=== PATIENT | female | born 1975 | race Caucasian/White ===

== ENCOUNTER 2025-04-22 12:24 | Observation (INO) | payer OTHER, SELFPAY ==
[2025-04-22] VITALS (15 sets, daily range): BP systolic 114–160; BP diastolic 52–82; PULSE 92–110; RESP 15–25; TEMP 36.3–36.9; O2SAT 93–97; BMI 20.9
--- NOTE | 2025-04-22 12:29 | PC.NURSE ---
Blood glucose checked at triage, HIGH.
--- NOTE | 2025-04-22 12:52 | PC.NURSE ---
Pt states she gave herself 10 units of Humalog insulin at noon.
[2025-04-22 13:30] LABS: Hematocrit 41.1 % (37.0-47.0); Hemoglobin 13.7 g/dL (12.0-15.0); Immature Granulocyte Percent A 0.4 % (0-0.5); Lymphocytes Absolute Auto 0.93 K/mm3 (0.9-3.2); Mean Corpuscular HGB Conc 33.3 g/dl (32-36); Mean Corpuscular Hemoglobin 32.9 pg (26-34); Mean Corpuscular Volume 98.8 fl (80-100); Nucleated Red Blood Cells Absolute Auto 0.000 K/mm3 (0.0-0.012); Nucleated Red Blood Cells Perc 0.0 % (0.0-0.2); Platelet Count Result 286 k/mm3 (150-375); Red Blood Count 4.16 M/mm3 (4.2-5.4); White Blood Count 8.9 K/mm3 (4.5-10.0)
[2025-04-22] MEDS: SODIUM CHLORIDE 0.9% IV 1,000 ML 999 ML IV CONT ×2 (13:30)
[2025-04-22 13:40] LABS: Alveolar/Arterial O2 Gradient 38.9 mmHg; Carboxyhemoglobin 2.3 % THb (0-2.0); Fractional Inspired Oxygen 21 %; HCO3 ABG 11.1 mEq/l (22.0-26.0); Methemoglobin ABG 0.2 %THb (0-1.5); Oxygen Content ABG 17.3 %vol (16.0-22.0); Oxygen Saturation ABG 94.7 % (95.0-100.0); PCO2 ABG 24.8 mmHg (35.0-45.0); PO2 ABG 81.1 mmHg (80.0-100.0); PO2 FiO2 Ratio Arterial Blood 3.86 %; Reduced Hemoglobin 5.3 %THb (0-5.0)
[2025-04-22 13:45] LABS: Modified Allen's Test Pass; Site Drawn RIGHT RADIAL
[2025-04-22 13:55] LABS: Alanine Aminotransferase 25 U/L (6-35); Albumin Level 4.3 g/dL (3.5-5.1); Alkaline Phosphatase 101 U/L (38-126); Anion Gap 24 mmol/L (4-12); Aspartate Amino Transferase 27 U/L (14-36); Bilirubin,Total 0.9 mg/dL (0.2-1.3); Blood Urea Nitrogen 23 mg/dL (7-17); Calcium 8.6 mg/dL (8.4-10.2); Carbon Dioxide 10 mmol/L (22-30); Chloride 97 mmol/L (98-107); Estimated Glomerular Filt Rate > 60; Glucose 504 mg/dL (65-110); Magnesium 1.9 mg/dL (1.6-2.3); Potassium 4.3 mmol/L (3.4-5.0); Sodium 131 mmol/L (137-145); Total Protein 7.2 g/dL (6.3-8.2)
--- NOTE | 2025-04-22 14:58 | ED_ITS ---
HPI - General Adult General Chief complaint: Recheck/Abnormal Lab/Rx Stated complaint: insulin pump failed, hyperglycemic? Time Seen by Provider: 04/22/25 13:06 History of Present Illness HPI narrative: Patient is a 49-year-old female who presents ER with concerns for DKA. She has an insulin pump that has been having trouble with its tubing. She is change the equipment is still not getting her insulin dose properly. Her blood sugars been running in the 500s so she gave herself 10 units of insulin and came to the ER. She is having some nausea. No fevers or chills or sweats. No urinary frequency urgency. Denies polydipsia. Recently hospitalized for DKA in [place]. Related Data Home Medications ?Medication ?Instructions ?Recorded ?Confirmed ?Last Taken ?Type cyclobenzaprine 10 mg tablet 10 mg PO HS PRN muscle sp asm 04/22/25 04/22/25 04/21/25 History insulin lispro 100 unit/mL 1 sliding scale dose contin uous 04/22/25 04/22/25 04/21/25 History subcutaneous solution subcutaneous infusion DAILY Allergies Allergy/AdvReac Type Severity Reaction Status Date / Time adhesive Allergy Rash Verified 04/22/25 16:44 bupropion (From Wellbutrin) Allergy Unknown Verified 04/22/25 16:44 [id number] Reductase Allergy lightheaded Verified 04/22/25 16:44 Inhibitor varenicline (From Chantix) Allergy Unknown Verified 04/22/25 16:44 Review of Systems 2 Review of Systems: All systems reviewed & are unremarkable except as noted in HPI and below Constitutional: Constitutional: Reports no additional constitutional complaints ENT: Reports system reviewed and no additional complaints, except as documented Cardiovascular: Cardiovascular: Reports no additional cardiovascular complaints Respiratory: Respiratory: Reports no additional respiratory complaints Gastrointestinal: Gastrointestinal: Reports no additional gastrointestinal complaints Genitourinary: Genitourinary: Reports no additional female genitourinary complaints [facility] Past Medical History Medical History (Updated 04/22/25 @ 20:05 by John Olson MD) Diabetes Surgical History Surgical History (Updated 04/22/25 @ 20:02 by John Olson MD) History of hysterectomy History of cholecystectomy Family History Family History (Updated 04/22/25 @ 17:11 by Adri Zhou RN) Mother Breast cancer Father Heart attack Social History Social History Smoking packs per day: 1 Smoking cigarettes per day: 20.0 Years smoked: 37 Smoking pack-years: 37.00 Smoking status: Current every day smoker Tobacco type: cigarettes Alcohol intake: never Substance use: never Substance use type: does not use Lack of Transportation: No Lack of Food: Never True Current Housing: I Have Housing Concerned About Future Housing: No Difficulty Paying Gas/Electric Bills: No Difficulty Paying for Meds: No Currently Unemployed: No Education: Associate Degree Difficulty w/ Childcare or Family Care: No Spiritual care concerns: No Exam 2 Narrative: GENERAL: Well-appearing, well-nourished, and in no acute distress. HEAD: Normocephalic, atraumatic. ENT: Mucous membranes moist. CHEST: Clear to auscultation. No respiratory distress. HEART: Tachycardic and regular. Normal peripheral pulses. ABDOMEN: Soft, nontender, nondistended. EXTREMITIES: Normal range of motion. No edema. SKIN: Warm, dry, no rash. NEURO: Alert and oriented x3. PSYCH: Normal mood and affect. Course Course Emergency Course: Patient aggressively hydrated with IV fluids. Blood sugar down into the 300s. Started on insulin drip. Keep NPO. Placed in ICU. Regulatory Submissions Associate consulted. Accepted by the hospitalist service. Vital Signs Vital signs: Vital Signs Temperature 97.3 F L 04/22/25 12:26 Pulse Rate 104 H 04/22/25 12:26 Respiratory Rate 20 04/22/25 12:26 Blood Pressure 114/52 L 04/22/25 12:26 Pulse Oximetry 97 04/22/25 12:26 Oxygen Delivery Room Air 04/22/25 12:26 Temperature 98.0 F 04/22/25 16:43 Pulse Rate 96 04/22/25 19:29 Respiratory Rate 20 04/22/25 19:29 Blood Pressure 150/74 H 04/22/25 19:00 Pulse Oximetry 94 04/22/25 19:29 Oxygen Delivery Room Air 04/22/25 19:29 [facility] Differential Diagnosis Differential Diagnosis: DKA, PRANAY, electrolyte report derangement, pneumonia Lab Data [facility] Lab Attestation statement: I personally reviewed the patient's lab results. 04/22/25 13:25 04/22/25 17:42 Labs: Lab Results 04/22/25 04/22/25 04/22/25 Range/Units 12:29 13:12 13:25 WBC 8.9 (4.5-10.0) K/mm3 RBC 4.16 L (4.2-5.4) M/mm3 Hgb 13.7 (12.0-15.0) g/dL Hct 41.1 (37.0-47.0) % MCV 98.8 (80-100) fl MCH 32.9 (26-34) pg MCHC 33.3 (32-36) g/dl RDW 12.7 (11.5-14.5) % Plt Count 286 (150-375) k/mm3 MPV 9.3 (7.4-10.4) fl Immature Gran % (Auto) 0.4 (0-0.5) % Neut % (Auto) 84.7 H (45.5-73.1) % Lymph % (Auto) 10.4 L (18.3-44.2) % Cannon % (Auto) 3.9 (2.6-8.5) % Eos % (Auto) 0.2 (0-4.4) % Baso % (Auto) 0.4 (0.2-1.2) % Lymph # (Auto) 0.93 (0.9-3.2) K/mm3 Cannon # (Auto) 0.4 (0.1-0.6) K/mm3 Eos # (Auto) 0.0 (0-0.3) K/mm3 Baso # (Auto) 0.0 (0.0-0.1) K/mm3 Abs Immat Gran (auto) 0.04 H (0.00-0.031) K/mm3 Absolute Neuts (auto) 7.6 H (1.3-6.7) K/mm3 Absolute Nucleated RBC 0.000 (0.0-0.012) K/mm3 Nucleated RBC % 0.0 (0.0-0.2) % Methemoglobin (0-1.5) %THb Sodium 131 L (137-145) mmol/L Potassium 4.3 (3.4-5.0) mmol/L Chloride 97 L (98-107) mmol/L Carbon Dioxide 10 L (22-30) mmol/L Anion Gap 24 H (4-12) mmol/L BUN 23 H (7-17) mg/dL Creatinine 0.89 (0.7-1.0) mg/dL Estim Creat Clear Calc Not Reportable Estimated GFR > 60 (59 - ) Glucose 504 H* (65-110) mg/dL POC Capillary Glucose > 500 H* > 500 H* (65-105) mg/dl Hemoglobin A1c 9.0 H (<5.7) % Calcium 8.6 (8.4-10.2) mg/dL Phosphorus 4.1 (2.5-4.5) mg/dL Magnesium 1.9 (1.6-2.3) mg/dL Total Bilirubin 0.9 (0.2-1.3) mg/dL AST 27 (14-36) U/L ALT 25 (6-35) U/L Alkaline Phosphatase 101 (38-126) U/L Total Protein 7.2 (6.3-8.2) g/dL Albumin 4.3 (3.5-5.1) g/dL Urine Color (Yellow) Urine Appearance (Clear) Urine pH (5.0-9.0) Ur Specific [place] (1.001-1.035) Urine Protein (Negative) mg/dL Urine Glucose (UA) (Negative) mg/dL Urine Ketones (Negative) mg/dL Ur Blood (Man) (Negative) Urine Nitrate (Negative) Urine Bilirubin (Negative) Urine Urobilinogen (<2.0) mg/dL Leukocyte Esterase Rfl (Negative) CHRISTY/UL Urine RBC (0-2) /hpf Urine WBC (0-3) /hpf Ur Squamous Epith Cells (Few) /hpf Urine Bacteria /hpf Urine Casts POC Urine HCG, Qual (Negative) 04/22/25 04/22/25 04/22/25 Range/Units 13:36 14:25 15:02 WBC (4.5-10.0) K/mm3 RBC (4.2-5.4) M/mm3 Hgb (12.0-15.0) g/dL Hct (37.0-47.0) % MCV (80-100) fl MCH (26-34) pg MCHC (32-36) g/dl RDW (11.5-14.5) % Plt Count (150-375) k/mm3 MPV (7.4-10.4) fl Immature Gran % (Auto) (0-0.5) % Neut % (Auto) (45.5-73.1) % Lymph % (Auto) (18.3-44.2) % Cannon % (Auto) (2.6-8.5) % Eos % (Auto) (0-4.4) % Baso % (Auto) (0.2-1.2) % Lymph # (Auto) (0.9-3.2) K/mm3 Cannon # (Auto) (0.1-0.6) K/mm3 Eos # (Auto) (0-0.3) K/mm3 Baso # (Auto) (0.0-0.1) K/mm3 Abs Immat Gran (auto) (0.00-0.031) K/mm3 Absolute Neuts (auto) (1.3-6.7) K/mm3 Absolute Nucleated RBC (0.0-0.012) K/mm3 Nucleated RBC % (0.0-0.2) % Methemoglobin 0.2 (0-1.5) %THb Sodium (137-145) mmol/L Potassium (3.4-5.0) mmol/L Chloride (98-107) mmol/L Carbon Dioxide (22-30) mmol/L Anion Gap (4-12) mmol/L BUN (7-17) mg/dL Creatinine (0.7-1.0) mg/dL Estim Creat Clear Calc Estimated GFR (59 - ) Glucose (65-110) mg/dL POC Capillary Glucose 345 H (65-105) mg/dl Hemoglobin A1c (<5.7) % Calcium (8.4-10.2) mg/dL Phosphorus (2.5-4.5) mg/dL Magnesium (1.6-2.3) mg/dL Total Bilirubin (0.2-1.3) mg/dL AST (14-36) U/L ALT (6-35) U/L Alkaline Phosphatase (38-126) U/L Total Protein (6.3-8.2) g/dL Albumin (3.5-5.1) g/dL Urine Color Yellow (Yellow) Urine Appearance Cloudy H (Clear) Urine pH 5.0 (5.0-9.0) Ur Specific [place] 1.023 (1.001-1.035) Urine Protein Trace (Negative) mg/dL Urine Glucose (UA) 3+ H (Negative) mg/dL Urine Ketones 4+ H (Negative) mg/dL Ur Blood (Man) Negative (Negative) Urine Nitrate Negative (Negative) Urine Bilirubin Negative (Negative) Urine Urobilinogen 0.2 (<2.0) mg/dL Leukocyte Esterase Rfl Negative (Negative) CHRISTY/UL Urine RBC 0-2 (0-2) /hpf Urine WBC 0-5 (0-3) /hpf Ur Squamous Epith Cells None seen (Few) /hpf Urine Bacteria None seen /hpf Urine Casts 3-5 POC Urine HCG, Qual (Negative) 04/22/25 Range/Units 15:06 WBC (4.5-10.0) K/mm3 RBC (4.2-5.4) M/mm3 Hgb (12.0-15.0) g/dL Hct (37.0-47.0) % MCV (80-100) fl MCH (26-34) pg MCHC (32-36) g/dl RDW (11.5-14.5) % Plt Count (150-375) k/mm3 MPV (7.4-10.4) fl Immature Gran % (Auto) (0-0.5) % Neut % (Auto) (45.5-73.1) % Lymph % (Auto) (18.3-44.2) % Cannon % (Auto) (2.6-8.5) % Eos % (Auto) (0-4.4) % Baso % (Auto) (0.2-1.2) % Lymph # (Auto) (0.9-3.2) K/mm3 Cannon # (Auto) (0.1-0.6) K/mm3 Eos # (Auto) (0-0.3) K/mm3 Baso # (Auto) (0.0-0.1) K/mm3 Abs Immat Gran (auto) (0.00-0.031) K/mm3 Absolute Neuts (auto) (1.3-6.7) K/mm3 Absolute Nucleated RBC (0.0-0.012) K/mm3 Nucleated RBC % (0.0-0.2) % Methemoglobin (0-1.5) %THb Sodium (137-145) mmol/L Potassium (3.4-5.0) mmol/L Chloride (98-107) mmol/L Carbon Dioxide (22-30) mmol/L Anion Gap (4-12) mmol/L BUN (7-17) mg/dL Creatinine (0.7-1.0) mg/dL Estim Creat Clear Calc Estimated GFR (59 - ) Glucose (65-110) mg/dL POC Capillary Glucose (65-105) mg/dl Hemoglobin A1c (<5.7) % Calcium (8.4-10.2) mg/dL Phosphorus (2.5-4.5) mg/dL Magnesium (1.6-2.3) mg/dL Total Bilirubin (0.2-1.3) mg/dL AST (14-36) U/L ALT (6-35) U/L Alkaline Phosphatase (38-126) U/L Total Protein (6.3-8.2) g/dL Albumin (3.5-5.1) g/dL Urine Color (Yellow) Urine Appearance (Clear) Urine pH (5.0-9.0) Ur Specific [place] (1.001-1.035) Urine Protein (Negative) mg/dL Urine Glucose (UA) (Negative) mg/dL Urine Ketones (Negative) mg/dL Ur Blood (Man) (Negative) Urine Nitrate (Negative) Urine Bilirubin (Negative) Urine Urobilinogen (<2.0) mg/dL Leukocyte Esterase Rfl (Negative) CHRISTY/UL Urine RBC (0-2) /hpf Urine WBC (0-3) /hpf Ur Squamous Epith Cells (Few) /hpf Urine Bacteria /hpf Urine Casts POC Urine HCG, Qual Negative (Negative) ABG Data ABG results: 04/22/25 13:36 Puncture Site Right radial ABG pH 7.269 L* ABG pCO2 24.8 L ABG pO2 81.1 ABG PO2/FiO2 Ratio 3.86 ABG HCO3 11.1 L ABG O2 Saturation 94.7 L ABG O2 Content 17.3 ABG Base Excess -14.0 A-a Gradient 38.9 Oxyhemoglobin 92.2 Carboxyhemoglobin 2.3 H Reduced Hemoglobin 5.3 H Total Hemoglobin 13.3 O2 Delivery Device Room air O2 Liters/Min Not Reportable FiO2 21 Critical Care Time Critical Care Time Critical Care Time: Yes Time Type: Intermittent Initial evaluation, discuss w/ involved parties, attempting to gather old records: 10 minutes Documenting medical record: 5 minutes Review of results (EKG's, labs, imaging): 5 minutes Serial repeat bedside evaluation: 10 minutes Discussing case with multiple memebers of the care team and consultants: 5 minutes Total Critical Care Time: 35 Discharge Plan Discharge Clinical Impression: DKA, type 1 Qualifiers: Diabetes mellitus complication detail: without coma Qualified Code(s): E10.10 - Type 1 diabetes mellitus with ketoacidosis without coma Patient Disposition: Still a Patient Condition: Stable
[2025-04-22 15:08] LABS: BEDSIDEPREGUCG Negative (Negative)
[2025-04-22 15:16] LABS: Add Urine Microscopic? YES; Appearance Urine Cloudy (Clear); Glucose Urine UA 3+ mg/dL (Negative); Leukocyte Esterase Ur Negative LEU/UL (Negative); Nitrate Urine Negative (Negative); Specific Grav Ur 1.023 (1.001-1.035)
[2025-04-22] MEDS: INSULIN HUMAN REGULAR (*BKC) 100 UNITS in SODIUM CHLORIDE 0.9% IV 99 ML 6 UNITS IV CONT (15:34)
[2025-04-22] MEDS: DEXTROSE 5%/0.45% SOD CHL 1,000 ML 150 ML IV CONT (16:26)
[2025-04-22] MEDS: KCL 20 MEQ/D5/0.45% SOD CHL 1,000 ML 150 ML IV CONT (16:42)
--- NOTE | 2025-04-22 16:47 | ADMGEN ---
This patient, Heidy Kennedy, was admitted to Intensive Care Unit-6. Patient/family oriented to hospital policies and general routines including ID bracelet, bed and alarms, visiting hours, pain management, procedures, bathroom and other care routines, personal items, smoking policy, room service/diet, and visiting hours. Information on how to activate the Rapid Response Team has been discussed. Patient/Family are encouraged to report perceived risks to care and to ask questions if they do not understand what they are told or what they should do.
[2025-04-22 17:20] LABS: MRSA (PCR) NOT DETECTED (NOT DETECTE)
--- NOTE | 2025-04-22 17:20 | P.HP_ITS ---
H&P: HPI History of Present Illness Date/Time: 04/22/25 17:20 Chief Complaint: Hyperglycemia Narrative: 49-year-old female with past medical history of type 1 diabetes presents to the ED on 04/22/2025 her with symptoms of DKA. She has had her insulin pump for 1- 1/2 months and states the first month with it went well. She states she is having trouble with the tubing and is still not getting her proper insulin dose despite changing the equipment out. She was just discharged from a hospital in [place] on 02/16/2025 after being admitted with DKA after having trouble with her pump. Patient endorses polyuria and nausea. She states her meter read HIGH today. She administered 10 units of NovoLog before presenting to the ED. Denies chest pain, shortness of breath but states she is had a cough for a few weeks but no fevers. She states her viral panel was negative at the [facility] last week. Patient had an insulin pump previously about 10 years ago. She states she kept knocking at off at work and transitioned off her pump at that time. The patient states this is different pump manufacture than she had in the past. She plans on asking the company if they have a different style can nula. ED course: Initial vital signs 114/52, HR 104, respirations 20, afebrile and 97% on room air. Hematology with no leukocytosis. Chemistry reveals sodium 131, chloride 97, carbon dioxide 10, anion gap 24, BUN 23. Glucose 504. A1c 9.0. UA with 3+ glucose, 4+ ketones and no sign of infection. MRSA PCR negative. Patient states her viral panel was negative in [place] last week. ABG pH 7.269, pCO2 24.8, HC03 11.1. Review of Systems Review of Systems: All systems reviewed & are unremarkable except as noted in HPI and below [facility] Past Medical History Medical History (Updated 04/22/25 @ 20:05 by John Olson MD) Diabetes Surgical History Surgical History (Updated 04/22/25 @ 20:02 by John Olson MD) History of hysterectomy History of cholecystectomy Family History Family History (Updated 04/22/25 @ 17:11 by Adri Zhou RN) Mother Breast cancer Father Heart attack Social History Social History Smoking packs per day: 1 Smoking cigarettes per day: 20.0 Years smoked: 37 Smoking pack-years: 37.00 Smoking status: Current every day smoker Tobacco type: cigarettes Alcohol intake: never Substance use: never Substance use type: does not use Lack of Transportation: No Lack of Food: Never True Current Housing: I Have Housing Concerned About Future Housing: No Difficulty Paying Gas/Electric Bills: No Difficulty Paying for Meds: No Currently Unemployed: No Education: Associate Degree Difficulty w/ Childcare or Family Care: No Spiritual care concerns: No Meds Home Medications and Allergies Home Medications ?Medication ?Instructions ?Recorded ?Confirmed ?Type cyclobenzaprine 10 mg tablet 10 mg PO HS PRN muscle sp asm 04/22/25 04/22/25 History insulin lispro 100 unit/mL 1 sliding scale dose contin uous 04/22/25 04/22/25 History subcutaneous solution subcutaneous infusion DAILY Allergies Allergy/AdvReac Type Severity Reaction Status Date / Time adhesive Allergy Rash Verified 04/22/25 16:44 bupropion (From Wellbutrin) Allergy Unknown Verified 04/22/25 16:44 [id number] Reductase Allergy lightheaded Verified 04/22/25 16:44 Inhibitor varenicline (From Chantix) Allergy Unknown Verified 04/22/25 16:44 Vital Signs Vital Signs - 24 hr 04/22/25 12:26 04/22/25 12:48 04/22/25 13:29 Temperature 97.3 F L Pulse Rate 104 H 106 H 110 H Respiratory Rate 20 15 25 H Blood Pressure 114/52 L 129/65 128/54 L Pulse Oximetry 97 97 94 Oxygen Delivery Room Air 04/22/25 14:28 04/22/25 15:44 04/22/25 16:43 Temperature 98.5 F 98.0 F Pulse Rate 109 H 106 H 108 H Respiratory Rate 24 H 22 H 17 Blood Pressure 122/54 L 133/63 147/69 H Pulse Oximetry 95 96 96 Oxygen Delivery 04/22/25 17:00 Temperature Pulse Rate 104 H Respiratory Rate 22 H Blood Pressure 117/52 L Pulse Oximetry 97 Oxygen Delivery Exam Narrative: GENERAL: non-toxic appearing, in no acute distress. HEAD: Normocephalic, atraumatic. EYES: PERRLA. Conjunctivae clear. NOSE: Normal no drainage. THROAT: Pharynx clear, no exudate. NECK: ?Trachea midline. No adenopathy, no masses. RESPIRATORY: Airway patent, respirations nonlabored. CTA. CARDIOVASCULAR: Sinus tach with regular rhythm BREASTS: ?Defer GASTROINTESTINAL: ?Abdomen is soft and nontender. ?No organomegaly. ?Bowel sounds normal in all quadrants. GENITOURINARY: ?Defer MUSCULOSKELETAL: Moves all extremities. No gross deformities. No peripheral edema SKIN: Warm, dry, normal color. NEURO: A&O X4. Speech clear PSYCHIATRIC: Normal interaction Results Labs Labs: Short CBC 04/22/25 Range/Units 13:25 WBC 8.9 (4.5-10.0) K/mm3 Hgb 13.7 (12.0-15.0) g/dL Hct 41.1 (37.0-47.0) % Plt Count 286 (150-375) k/mm3 BMP 04/22/25 13:25 Sodium 131 L Potassium 4.3 Chloride 97 L Carbon Dioxide 10 L BUN 23 H Creatinine 0.89 Glucose 504 H* Calcium 8.6 Liver Function 04/22/25 Range/Units 13:25 Total Bilirubin 0.9 (0.2-1.3) mg/dL AST 27 (14-36) U/L ALT 25 (6-35) U/L Alkaline Phosphatase 101 (38-126) U/L Albumin 4.3 (3.5-5.1) g/dL Urine 04/22/25 Range/Units 15:02 Urine Color Yellow (Yellow) Urine Appearance Cloudy H (Clear) Urine pH 5.0 (5.0-9.0) Ur Specific [place] 1.023 (1.001-1.035) Urine Protein Trace (Negative) mg/dL Urine Glucose (UA) 3+ H (Negative) mg/dL Quality VTE Prophylaxis VTE prophylaxis: mechanical ordered Assessment and Plan Assessment and plan (1) DKA, type 1: Qualifiers: Diabetes mellitus complication detail: without coma Qualified Code(s): E10.10 - Type 1 diabetes mellitus with ketoacidosis without coma Code(s): E10.10 - Type 1 diabetes mellitus with ketoacidosis without coma Status: Acute Assessment and Plan: history of type 1 diabetes and a malfunctioning insulin pump. Initial glucose was 504. UA with 3+ glucose, 4+ ketones and no sign of infection. Sodium 131, chloride 97, carbon dioxide 10, anion gap 24, BUN 23. ABG pH 7.269, pCO2 24.8, HC03 11.1. K 4.3 Mag 1.9 and phos 4.1. Creatinine 0.89 - trend BMP Q4H, repeat Mag and Phos - DKA protocol initiated - IV fluids: given 2 L in ED. Now on 100 mL/hr of D5 1/2 NS w 20 KCl - insulin gtt currently running at 1 u/hr - NPO - break out worker consulted - clinical educator consulted - senior oracle soa developer consulted Plan Diet: NPO DVT prophylaxis: SCDs GI prophylaxis: Protonix lines/drains: PIV Fluids: given 2 L in ED. Now on 100 mL/hr of D5 1/2 NS w 20 KCl Code status: Full Prior Studies I have reviewed the following patient records and this information was taken into consideration when formulating the assessment and plan.: previous labs, previous ER visits, previous hospitalizations and previous clinic visits Time Spent with Patient Time with patient: 45 - 74 minutes Hospitalist MIPS Advance Care Plan I have confirmed that the patient's Advanced Care Plan is present, code status is documented, or surrogate decision maker is listed in patient medical record.: Yes Medication Reconciliation I have utilized all available resources to obtain, update and review the patients current medications (includes all prescriptions, OTC, herbals, cannabis, and nutritional supplements).: Yes
[2025-04-22 17:39] LABS: Hemoglobin A1C 9.0 % (<5.7)
[2025-04-22 18:00] LABS: Anion Gap 5 mmol/L (4-12); Blood Urea Nitrogen 21 mg/dL (7-17); Calcium 8.2 mg/dL (8.4-10.2); Carbon Dioxide 21 mmol/L (22-30); Chloride 108 mmol/L (98-107); Estimated CRCL calculation 91 ml/min; Estimated Glomerular Filt Rate > 60; Glucose 128 mg/dL (65-110); Potassium 4.5 mmol/L (3.4-5.0); Sodium 134 mmol/L (137-145)
[2025-04-22] MEDS: BENZONATATE 100 MG CAPSULE PO (19:25)
[2025-04-22] MEDS: ACETAMINOPHEN 325 MG TABLET 650 MG PO (19:25)
[2025-04-22 20:50] LABS: Anion Gap 5 mmol/L (4-12); Blood Urea Nitrogen 18 mg/dL (7-17); Calcium 8.0 mg/dL (8.4-10.2); Carbon Dioxide 19 mmol/L (22-30); Chloride 109 mmol/L (98-107); Estimated CRCL calculation 103 ml/min; Estimated Glomerular Filt Rate > 60; Glucose 123 mg/dL (65-110); Magnesium 1.8 mg/dL (1.6-2.3); Potassium 4.2 mmol/L (3.4-5.0); Sodium 133 mmol/L (137-145)
[2025-04-22] MEDS: guaiFENesin 12 HR 600 MG TABCR 1200 MG PO (21:22)
[2025-04-23] VITALS (13 sets, daily range): BP systolic 130–171; BP diastolic 66–85; PULSE 87–102; RESP 18–27; TEMP 36.7–37; O2SAT 93–99; BMI 21.1
[2025-04-23 00:52] LABS: Anion Gap 2 mmol/L (4-12); Blood Urea Nitrogen 16 mg/dL (7-17); Calcium 7.9 mg/dL (8.4-10.2); Carbon Dioxide 21 mmol/L (22-30); Chloride 110 mmol/L (98-107); Estimated CRCL calculation 112 ml/min; Estimated Glomerular Filt Rate > 60; Glucose 106 mg/dL (65-110); Potassium 3.8 mmol/L (3.4-5.0); Sodium 133 mmol/L (137-145)
[2025-04-23] MEDS: KCL 20 MEQ/D5/0.45% SOD CHL 1,000 ML 100 ML IV CONT (01:29)
[2025-04-23 05:09] LABS: Anion Gap 5 mmol/L (4-12); Blood Urea Nitrogen 13 mg/dL (7-17); Calcium 7.8 mg/dL (8.4-10.2); Carbon Dioxide 22 mmol/L (22-30); Chloride 108 mmol/L (98-107); Estimated CRCL calculation 117 ml/min; Estimated Glomerular Filt Rate > 60; Glucose 83 mg/dL (65-110); Potassium 3.7 mmol/L (3.4-5.0); Sodium 135 mmol/L (137-145)
[2025-04-23] MEDS: BENZONATATE 100 MG CAPSULE PO (08:11)
[2025-04-23] MEDS: PANTOPRAZOLE 40 MG TABLET PO (08:11)
[2025-04-23] MEDS: guaiFENesin 12 HR 600 MG TABCR 1200 MG PO (08:12)
--- NOTE | 2025-04-23 08:58 | P.CONIN_ITS ---
Assessment and Plan Assessment and plan (1) DKA, type 1: Qualifiers: Diabetes mellitus complication detail: without coma Qualified Code(s): E10.10 - Type 1 diabetes mellitus with ketoacidosis without coma Code(s): E10.10 - Type 1 diabetes mellitus with ketoacidosis without coma Status: Acute (2) Volume depletion: Code(s): E86.9 - Volume depletion, unspecified Status: Acute Plan 1. Diabetes ketoacidosis associated with pump malfunction: Will have inclusion paraeducator see her. Her anion gap acidosis has corrected. We will give her 10 units of Lantus and then will ask her to start her pump when she gets home and is able to charge it. She was advised to check with her diabetic canceling and cutting control clerk and discuss as well as seeing our educator here. 2. Cough in a tobacco user: Her examination is not consistent with pneumonia. White blood cell count is normal and she is afebrile. She was advised to stop smoking 3. Hypertension: She was advised to check her blood pressure and if persistently elevated she will need medications. 4. She is stable to be discharged once she sees inclusion paraeducator. 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 She has some difficulty with the tube in and she thought she was not getting the insulin. She then started to have nausea thirst and polyuria. Her blood sugar was elevated today so she came to the emergency room which was found to have diabetes ketoacidosis. Further workup failed to show any evidence of acute infection. Her anion gap acidosis closed very quickly and his sugars were low today so the insulin drip was stopped as well. Patient has no way off starting her pump at the hospital. Review of Systems 2 Review of Systems: All systems reviewed & are unremarkable except as noted in HPI and below Respiratory: Comments: She has some cough with clear sputum production Gastrointestinal: Comments: Nausea prior to admission PMFSH Past Medical History Medical History (Updated 04/23/25 @ 09:06 by Parker Connor MD) Diabetes Surgical History Surgical History (Updated 04/22/25 @ 20:02 by John Olson MD) History of hysterectomy History of cholecystectomy Family History Family History (Updated 04/22/25 @ 17:11 by Adri Zhou RN) Mother Breast cancer Father Heart attack Social History Social History Smoking packs per day: 1 Smoking cigarettes per day: 20.0 Years smoked: 37 Smoking pack-years: 37.00 Smoking status: Current every day smoker Tobacco type: cigarettes Alcohol intake: never Substance use: never Substance use type: does not use Lack of Transportation: No Lack of Food: Never True Current Housing: I Have Housing Concerned About Future Housing: No Difficulty Paying Gas/Electric Bills: No Difficulty Paying for Meds: No Currently Unemployed: No Education: Associate Degree Difficulty w/ Childcare or Family Care: No Spiritual care concerns: No Meds Home Medications and Allergies Home Medications ?Medication ?Instructions ?Recorded ?Confirmed ?Type cyclobenzaprine 10 mg tablet 10 mg PO HS PRN muscle sp asm 04/22/25 04/22/25 History insulin lispro 100 unit/mL 1 sliding scale dose contin uous 04/22/25 04/22/25 History subcutaneous solution subcutaneous infusion DAILY Allergies Allergy/AdvReac Type Severity Reaction Status Date / Time adhesive Allergy Rash Verified 04/22/25 16:44 bupropion (From Wellbutrin) Allergy Unknown Verified 04/22/25 16:44 [id number] Reductase Allergy lightheaded Verified 04/22/25 16:44 Inhibitor varenicline (From Chantix) Allergy Unknown Verified 04/22/25 16:44 Vital Signs Vital Signs - 24 hr 04/22/25 12:26 04/22/25 12:48 04/22/25 13:29 Temperature 97.3 F L Pulse Rate 104 H 106 H 110 H Respiratory Rate 20 15 25 H Blood Pressure 114/52 L 129/65 128/54 L Pulse Oximetry 97 97 94 Oxygen Delivery Room Air 04/22/25 14:28 04/22/25 15:44 04/22/25 16:43 Temperature 98.5 F 98.0 F Pulse Rate 109 H 106 H 108 H Respiratory Rate 24 H 22 H 17 Blood Pressure 122/54 L 133/63 147/69 H Pulse Oximetry 95 96 96 Oxygen Delivery 04/22/25 17:00 04/22/25 18:00 04/22/25 18:00 Temperature Pulse Rate 104 H 100 100 Respiratory Rate 22 H 23 H Blood Pressure 117/52 L 136/62 Pulse Oximetry 97 97 Oxygen Delivery 04/22/25 19:00 04/22/25 19:29 04/22/25 20:00 Temperature 98.3 F Pulse Rate 96 96 97 Respiratory Rate 20 20 24 H Blood Pressure 150/74 H 152/73 H Pulse Oximetry 94 94 95 Oxygen Delivery Room Air 04/22/25 20:00 04/22/25 21:00 04/22/25 22:00 Temperature Pulse Rate 97 94 97 Respiratory Rate 21 H Blood Pressure 160/80 H Pulse Oximetry 96 Oxygen Delivery 04/22/25 22:00 04/22/25 23:00 04/22/25 23:30 Temperature 98.5 F Pulse Rate 95 93 92 Respiratory Rate 24 H 25 H 23 H Blood Pressure 145/82 H 158/82 H Pulse Oximetry 95 93 95 Oxygen Delivery Room Air 04/23/25 00:00 04/23/25 00:00 04/23/25 01:00 Temperature Pulse Rate 102 H 102 H 92 Respiratory Rate 23 H 20 Blood Pressure 151/79 H 159/85 H Pulse Oximetry 95 95 Oxygen Delivery 04/23/25 02:00 04/23/25 02:00 04/23/25 03:00 Temperature Pulse Rate 96 96 90 Respiratory Rate 23 H 18 Blood Pressure 161/83 H 153/81 H Pulse Oximetry 96 95 Oxygen Delivery 04/23/25 03:32 04/23/25 04:00 04/23/25 04:00 Temperature 98.6 F Pulse Rate 88 87 87 Respiratory Rate 20 19 Blood Pressure 154/79 H Pulse Oximetry 96 96 Oxygen Delivery Room Air 04/23/25 05:00 04/23/25 06:00 04/23/25 06:00 Temperature Pulse Rate 92 91 93 Respiratory Rate 24 H 20 Blood Pressure 130/74 144/75 H Pulse Oximetry 95 95 Oxygen Delivery 04/23/25 07:00 04/23/25 08:00 Temperature 98.1 F Pulse Rate 100 89 Respiratory Rate 22 H 20 Blood Pressure 171/81 H 158/78 H Pulse Oximetry 93 99 Oxygen Delivery Exam 2 Narrative: Is awake and following commands HENMT: Ears: TM's normal bilaterally Eyes: General: appearance normal, both eyes and all related structures Neck: Neck: no JVD Resp: Effort & Inspection: normal respiratory effort Cardio: Rate: regular rate GI: GI Palp: Yes Soft to palpation Skin: General skin exam: normal color Neuro: Motor exam (neuro): 5/5 motor strength present throughout Other: Awake alert and following commands Extrem: General: normal to inspection Psych: Mental Status: mental status grossly normal Results Labs 04/22/25 13:25 04/23/25 04:23 Labs: Short CBC 04/22/25 Range/Units 13:25 WBC 8.9 (4.5-10.0) K/mm3 Hgb 13.7 (12.0-15.0) g/dL Hct 41.1 (37.0-47.0) % Plt Count 286 (150-375) k/mm3 BMP 04/22/25 04/22/25 04/22/25 13:25 17:42 20:30 Sodium 131 L 134 L 133 L Potassium 4.3 4.5 4.2 Chloride 97 L 108 H 109 H Carbon Dioxide 10 L 21 L 19 L BUN 23 H 21 H 18 H Creatinine 0.89 0.63 L 0.55 L Glucose 504 H* 128 H 123 H Calcium 8.6 8.2 L 8.0 L 04/23/25 04/23/25 00:32 04:23 Sodium 133 L 135 L Potassium 3.8 3.7 Chloride 110 H 108 H Carbon Dioxide 21 L 22 BUN 16 13 Creatinine 0.50 L 0.48 L Glucose 106 83 Calcium 7.9 L 7.8 L Liver Function 04/22/25 Range/Units 13:25 Total Bilirubin 0.9 (0.2-1.3) mg/dL AST 27 (14-36) U/L ALT 25 (6-35) U/L Alkaline Phosphatase 101 (38-126) U/L Albumin 4.3 (3.5-5.1) g/dL Urine 04/22/25 Range/Units 15:02 Urine Color Yellow (Yellow) Urine Appearance Cloudy H (Clear) Urine pH 5.0 (5.0-9.0) Ur Specific [place] 1.023 (1.001-1.035) Urine Protein Trace (Negative) mg/dL Urine Glucose (UA) 3+ H (Negative) mg/dL
[2025-04-23] MEDS: INSULIN GLARGINE (*BKC) 100 UNITS/ML 10 UNITS SUB-Q (09:29)
--- NOTE | 2025-04-23 10:46 | PM.DS ---
DS: Admitting Diagnosis Discharge Date TODAY Admitting Diagnosis DKA DS: Discharge Diagnosis Discharge Diagnosis Plan PATIENT WAS ADMITTED WITH MILD DKA AND VOLUME DEPLETION ASSOCIATED WITH PUMP MALFUNCTION DS: Summary Hospital Course Reason for hospitalization: DKA Hospital Course: PATIENT WAS ADMITTED WITH INSULIN PUMP MALFUNCTION DEVELOPING DKA AND VOLUME DEPLETION. PATIENT WAS STARTED ON IV INSULIN AND IV FLUIDS AND SHE CORRECTED WITHIN A FEW HOURS. THE NEXT DAY WE ASK CARTON MAKING MACHINIST TO SEE HER REGARDING TRYING TO AVOID THIS ISSUES FROM RECURRING BUT SHE FELT SEDATED NOT NEED ANY HELP WITH TROUBLESHOOTING HER PUMP. AT THE TIME OF DISCHARGE HER ANION GAP IS CLOSED, SHE IS ABLE TO TAKE P.O. AND FEELS BACK TO NORMAL Time spent discussing smoking cessation with patient: 3 to 10 minutes Status at Discharge Functional status at discharge: independent ambulation Overall status at discharge: patient is back to baseline Time Spent with Patient Time attestation: Total time spent providing and/or coordinating discharge services: Time spent: Less than 30 minutes Specific discharge activities: NO LIMITATIONS DS: Data Data Completed and Pending Labs on day of discharge: Labs from last 24 hours 04/23/25 04/23/25 04/23/25 09:59 09:01 07:42 WBC RBC Hgb Hct MCV MCH MCHC RDW Plt Count MPV Immature Gran % (Auto) Neut % (Auto) Lymph % (Auto) [place] % (Auto) Eos % (Auto) Baso % (Auto) Lymph # (Auto) [place] # (Auto) Eos # (Auto) Baso # (Auto) Abs Immat Gran (auto) Absolute Neuts (auto) Absolute Nucleated RBC Nucleated RBC % Puncture Site ABG pH ABG pCO2 ABG pO2 ABG PO2/FiO2 Ratio ABG HCO3 ABG O2 Saturation ABG O2 Content ABG Base Excess A-a Gradient Oxyhemoglobin Carboxyhemoglobin Methemoglobin Reduced Hemoglobin Total Hemoglobin O2 Delivery Device O2 Liters/Min FiO2 Sodium Potassium Chloride Carbon Dioxide Anion Gap BUN Creatinine Estim Creat Clear Calc Estimated GFR Glucose POC Capillary Glucose 299 H 258 H 255 H Hemoglobin A1c Calcium Phosphorus Magnesium Total Bilirubin AST ALT Alkaline Phosphatase Total Protein Albumin Urine Color Urine Appearance Urine pH Ur Specific [place] Urine Protein Urine Glucose (UA) Urine Ketones Ur Blood (Man) Urine Nitrate Urine Bilirubin Urine Urobilinogen Leukocyte Esterase Rfl Urine RBC Urine WBC Ur Squamous Epith Cells Urine Bacteria Urine Casts POC Urine HCG, Qual Nasal MRSA (PCR) 04/23/25 04/23/25 04/23/25 06:30 06:05 04:23 WBC RBC Hgb Hct MCV MCH MCHC RDW Plt Count MPV Immature Gran % (Auto) Neut % (Auto) Lymph % (Auto) [place] % (Auto) Eos % (Auto) Baso % (Auto) Lymph # (Auto) [place] # (Auto) Eos # (Auto) Baso # (Auto) Abs Immat Gran (auto) Absolute Neuts (auto) Absolute Nucleated RBC Nucleated RBC % Puncture Site ABG pH ABG pCO2 ABG pO2 ABG PO2/FiO2 Ratio ABG HCO3 ABG O2 Saturation ABG O2 Content ABG Base Excess A-a Gradient Oxyhemoglobin Carboxyhemoglobin Methemoglobin Reduced Hemoglobin Total Hemoglobin O2 Delivery Device O2 Liters/Min FiO2 Sodium 135 L Potassium 3.7 Chloride 108 H Carbon Dioxide 22 Anion Gap 5 BUN 13 Creatinine 0.48 L Estim Creat Clear Calc 117 Estimated GFR > 60 Glucose 83 POC Capillary Glucose 118 H 67 Hemoglobin A1c Calcium 7.8 L Phosphorus Magnesium Total Bilirubin AST ALT Alkaline Phosphatase Total Protein Albumin Urine Color Urine Appearance Urine pH Ur Specific [place] Urine Protein Urine Glucose (UA) Urine Ketones Ur Blood (Man) Urine Nitrate Urine Bilirubin Urine Urobilinogen Leukocyte Esterase Rfl Urine RBC Urine WBC Ur Squamous Epith Cells Urine Bacteria Urine Casts POC Urine HCG, Qual Nasal MRSA (PCR) 04/23/25 04/23/25 04/23/25 03:50 01:55 00:32 WBC RBC Hgb Hct MCV MCH MCHC RDW Plt Count MPV Immature Gran % (Auto) Neut % (Auto) Lymph % (Auto) [place] % (Auto) Eos % (Auto) Baso % (Auto) Lymph # (Auto) [place] # (Auto) Eos # (Auto) Baso # (Auto) Abs Immat Gran (auto) Absolute Neuts (auto) Absolute Nucleated RBC Nucleated RBC % Puncture Site ABG pH ABG pCO2 ABG pO2 ABG PO2/FiO2 Ratio ABG HCO3 ABG O2 Saturation ABG O2 Content ABG Base Excess A-a Gradient Oxyhemoglobin Carboxyhemoglobin Methemoglobin Reduced Hemoglobin Total Hemoglobin O2 Delivery Device O2 Liters/Min FiO2 Sodium 133 L Potassium 3.8 Chloride 110 H Carbon Dioxide 21 L Anion Gap 2 L BUN 16 Creatinine 0.50 L Estim Creat Clear Calc 112 Estimated GFR > 60 Glucose 106 POC Capillary Glucose 96 106 H Hemoglobin A1c Calcium 7.9 L Phosphorus Magnesium Total Bilirubin AST ALT Alkaline Phosphatase Total Protein Albumin Urine Color Urine Appearance Urine pH Ur Specific [place] Urine Protein Urine Glucose (UA) Urine Ketones Ur Blood (Man) Urine Nitrate Urine Bilirubin Urine Urobilinogen Leukocyte Esterase Rfl Urine RBC Urine WBC Ur Squamous Epith Cells Urine Bacteria Urine Casts POC Urine HCG, Qual Nasal MRSA (PCR) 04/22/25 04/22/25 04/22/25 23:45 22:06 20:30 WBC RBC Hgb Hct MCV MCH MCHC RDW Plt Count MPV Immature Gran % (Auto) Neut % (Auto) Lymph % (Auto) [place] % (Auto) Eos % (Auto) Baso % (Auto) Lymph # (Auto) [place] # (Auto) Eos # (Auto) Baso # (Auto) Abs Immat Gran (auto) Absolute Neuts (auto) Absolute Nucleated RBC Nucleated RBC % Puncture Site ABG pH ABG pCO2 ABG pO2 ABG PO2/FiO2 Ratio ABG HCO3 ABG O2 Saturation ABG O2 Content ABG Base Excess A-a Gradient Oxyhemoglobin Carboxyhemoglobin Methemoglobin Reduced Hemoglobin Total Hemoglobin O2 Delivery Device O2 Liters/Min FiO2 Sodium 133 L Potassium 4.2 Chloride 109 H Carbon Dioxide 19 L Anion Gap 5 BUN 18 H Creatinine 0.55 L Estim Creat Clear Calc 103 Estimated GFR > 60 Glucose 123 H POC Capillary Glucose 109 H 125 H Hemoglobin A1c Calcium 8.0 L Phosphorus 3.1 Magnesium 1.8 Total Bilirubin AST ALT Alkaline Phosphatase Total Protein Albumin Urine Color Urine Appearance Urine pH Ur Specific [place] Urine Protein Urine Glucose (UA) Urine Ketones Ur Blood (Man) Urine Nitrate Urine Bilirubin Urine Urobilinogen Leukocyte Esterase Rfl Urine RBC Urine WBC Ur Squamous Epith Cells Urine Bacteria Urine Casts POC Urine HCG, Qual Nasal MRSA (PCR) 04/22/25 04/22/25 04/22/25 18:56 18:00 17:42 WBC RBC Hgb Hct MCV MCH MCHC RDW Plt Count MPV Immature Gran % (Auto) Neut % (Auto) Lymph % (Auto) [place] % (Auto) Eos % (Auto) Baso % (Auto) Lymph # (Auto) [place] # (Auto) Eos # (Auto) Baso # (Auto) Abs Immat Gran (auto) Absolute Neuts (auto) Absolute Nucleated RBC Nucleated RBC % Puncture Site ABG pH ABG pCO2 ABG pO2 ABG PO2/FiO2 Ratio ABG HCO3 ABG O2 Saturation ABG O2 Content ABG Base Excess A-a Gradient Oxyhemoglobin Carboxyhemoglobin Methemoglobin Reduced Hemoglobin Total Hemoglobin O2 Delivery Device O2 Liters/Min FiO2 Sodium 134 L Potassium 4.5 Chloride 108 H Carbon Dioxide 21 L Anion Gap 5 BUN 21 H Creatinine 0.63 L Estim Creat Clear Calc 91 Estimated GFR > 60 Glucose 128 H POC Capillary Glucose 127 H 137 H Hemoglobin A1c Calcium 8.2 L Phosphorus Magnesium Total Bilirubin AST ALT Alkaline Phosphatase Total Protein Albumin Urine Color Urine Appearance Urine pH Ur Specific [place] Urine Protein Urine Glucose (UA) Urine Ketones Ur Blood (Man) Urine Nitrate Urine Bilirubin Urine Urobilinogen Leukocyte Esterase Rfl Urine RBC Urine WBC Ur Squamous Epith Cells Urine Bacteria Urine Casts POC Urine HCG, Qual Nasal MRSA (PCR) 04/22/25 04/22/25 04/22/25 17:07 16:14 15:32 WBC RBC Hgb Hct MCV MCH MCHC RDW Plt Count MPV Immature Gran % (Auto) Neut % (Auto) Lymph % (Auto) [place] % (Auto) Eos % (Auto) Baso % (Auto) Lymph # (Auto) [place] # (Auto) Eos # (Auto) Baso # (Auto) Abs Immat Gran (auto) Absolute Neuts (auto) Absolute Nucleated RBC Nucleated RBC % Puncture Site ABG pH ABG pCO2 ABG pO2 ABG PO2/FiO2 Ratio ABG HCO3 ABG O2 Saturation ABG O2 Content ABG Base Excess A-a Gradient Oxyhemoglobin Carboxyhemoglobin Methemoglobin Reduced Hemoglobin Total Hemoglobin O2 Delivery Device O2 Liters/Min FiO2 Sodium Potassium Chloride Carbon Dioxide Anion Gap BUN Creatinine Estim Creat Clear Calc Estimated GFR Glucose POC Capillary Glucose 137 H 159 H Hemoglobin A1c Calcium Phosphorus Magnesium Total Bilirubin AST ALT Alkaline Phosphatase Total Protein Albumin Urine Color Urine Appearance Urine pH Ur Specific [place] Urine Protein Urine Glucose (UA) Urine Ketones Ur Blood (Man) Urine Nitrate Urine Bilirubin Urine Urobilinogen Leukocyte Esterase Rfl Urine RBC Urine WBC Ur Squamous Epith Cells Urine Bacteria Urine Casts POC Urine HCG, Qual Nasal MRSA (PCR) Not detected 04/22/25 04/22/25 04/22/25 15:31 15:06 15:02 WBC RBC Hgb Hct MCV MCH MCHC RDW Plt Count MPV Immature Gran % (Auto) Neut % (Auto) Lymph % (Auto) [place] % (Auto) Eos % (Auto) Baso % (Auto) Lymph # (Auto) [place] # (Auto) Eos # (Auto) Baso # (Auto) Abs Immat Gran (auto) Absolute Neuts (auto) Absolute Nucleated RBC Nucleated RBC % Puncture Site ABG pH ABG pCO2 ABG pO2 ABG PO2/FiO2 Ratio ABG HCO3 ABG O2 Saturation ABG O2 Content ABG Base Excess A-a Gradient Oxyhemoglobin Carboxyhemoglobin Methemoglobin Reduced Hemoglobin Total Hemoglobin O2 Delivery Device O2 Liters/Min FiO2 Sodium Potassium Chloride Carbon Dioxide Anion Gap BUN Creatinine Estim Creat Clear Calc Estimated GFR Glucose POC Capillary Glucose 214 H Hemoglobin A1c Calcium Phosphorus Magnesium Total Bilirubin AST ALT Alkaline Phosphatase Total Protein Albumin Urine Color Yellow Urine Appearance Cloudy H Urine pH 5.0 Ur Specific [place] 1.023 Urine Protein Trace Urine Glucose (UA) 3+ H Urine Ketones 4+ H Ur Blood (Man) Negative Urine Nitrate Negative Urine Bilirubin Negative Urine Urobilinogen 0.2 Leukocyte Esterase Rfl Negative Urine RBC 0-2 Urine WBC 0-5 Ur Squamous Epith Cells None seen Urine Bacteria None seen Urine Casts 3-5 POC Urine HCG, Qual Negative Nasal MRSA (PCR) 04/22/25 04/22/25 04/22/25 14:25 13:36 13:25 WBC 8.9 RBC 4.16 L Hgb 13.7 Hct 41.1 MCV 98.8 MCH 32.9 MCHC 33.3 RDW 12.7 Plt Count 286 MPV 9.3 Immature Gran % (Auto) 0.4 Neut % (Auto) 84.7 H Lymph % (Auto) 10.4 L [place] % (Auto) 3.9 Eos % (Auto) 0.2 Baso % (Auto) 0.4 Lymph # (Auto) 0.93 [place] # (Auto) 0.4 Eos # (Auto) 0.0 Baso # (Auto) 0.0 Abs Immat Gran (auto) 0.04 H Absolute Neuts (auto) 7.6 H Absolute Nucleated RBC 0.000 Nucleated RBC % 0.0 Puncture Site Right radial ABG pH 7.269 L* ABG pCO2 24.8 L ABG pO2 81.1 ABG PO2/FiO2 Ratio 3.86 ABG HCO3 11.1 L ABG O2 Saturation 94.7 L ABG O2 Content 17.3 ABG Base Excess -14.0 A-a Gradient 38.9 Oxyhemoglobin 92.2 Carboxyhemoglobin 2.3 H Methemoglobin 0.2 Reduced Hemoglobin 5.3 H Total Hemoglobin 13.3 O2 Delivery Device Room air O2 Liters/Min Not Reportable FiO2 21 Sodium 131 L Potassium 4.3 Chloride 97 L Carbon Dioxide 10 L Anion Gap 24 H BUN 23 H Creatinine 0.89 Estim Creat Clear Calc Not Reportable Estimated GFR > 60 Glucose 504 H* POC Capillary Glucose 345 H Hemoglobin A1c 9.0 H Calcium 8.6 Phosphorus 4.1 Magnesium 1.9 Total Bilirubin 0.9 AST 27 ALT 25 Alkaline Phosphatase 101 Total Protein 7.2 Albumin 4.3 Urine Color Urine Appearance Urine pH Ur Specific [place] Urine Protein Urine Glucose (UA) Urine Ketones Ur Blood (Man) Urine Nitrate Urine Bilirubin Urine Urobilinogen Leukocyte Esterase Rfl Urine RBC Urine WBC Ur Squamous Epith Cells Urine Bacteria Urine Casts POC Urine HCG, Qual Nasal MRSA (PCR) 04/22/25 04/22/25 13:12 12:29 WBC RBC Hgb Hct MCV MCH MCHC RDW Plt Count MPV Immature Gran % (Auto) Neut % (Auto) Lymph % (Auto) [place] % (Auto) Eos % (Auto) Baso % (Auto) Lymph # (Auto) [place] # (Auto) Eos # (Auto) Baso # (Auto) Abs Immat Gran (auto) Absolute Neuts (auto) Absolute Nucleated RBC Nucleated RBC % Puncture Site ABG pH ABG pCO2 ABG pO2 ABG PO2/FiO2 Ratio ABG HCO3 ABG O2 Saturation ABG O2 Content ABG Base Excess A-a Gradient Oxyhemoglobin Carboxyhemoglobin Methemoglobin Reduced Hemoglobin Total Hemoglobin O2 Delivery Device O2 Liters/Min FiO2 Sodium Potassium Chloride Carbon Dioxide Anion Gap BUN Creatinine Estim Creat Clear Calc Estimated GFR Glucose POC Capillary Glucose > 500 H* > 500 H* Hemoglobin A1c Calcium Phosphorus Magnesium Total Bilirubin AST ALT Alkaline Phosphatase Total Protein Albumin Urine Color Urine Appearance Urine pH Ur Specific [place] Urine Protein Urine Glucose (UA) Urine Ketones Ur Blood (Man) Urine Nitrate Urine Bilirubin Urine Urobilinogen Leukocyte Esterase Rfl Urine RBC Urine WBC Ur Squamous Epith Cells Urine Bacteria Urine Casts POC Urine HCG, Qual Nasal MRSA (PCR) Discharge Plan Discharge Attending physician on discharge: Parker Connor Consulting providers: Parker Connor Discharging Clinician: Parker Connor Patient Disposition: Home Activity: unlimited Diet: diabetic Patient Instructions: Antibiotic Form Patient Language: Sammarinese Stand Alone Forms: General Discharge Information Follow-up/Referrals: FOLLOW-UP WITH PRIMARY CARE PHYSICIAN [Other] Discharge Medications: Continued cyclobenzaprine 10 mg tablet 10 mg PO HS PRN (Reason: muscle spasm) Patient Comments: takes at night for muscles spasms to help sleep insulin lispro 100 unit/mL solution 1 sliding scale dose continuous subcutaneous infusion DAILY Patient Comments: for insulin pump Date of admission: 04/22/25 15:21 Primary Care Provider: PHYSICIAN NOT ON STAFF,NONSTAFF Admitting Provider: Hawa Klein Attending physician on admission: Hawa Klein Condition: Stable
--- NOTE | 2025-04-23 11:32 | PC.NURSE ---
Discharge instructions given to patient. Packet signed by patient and myself as witness, accidently sent signed paper with patient. All belongings sent with patient at discharge. Escorted down to lobby via wheelchair with technical producer.
--- NOTE | 2025-04-27 13:45 | PCCDE ---
DM educator placed courtesy follow up call. Pt states to having an educator as well as follow up HCP appt scheduled.
== END 2025-04-23 11:10 | disposition home or self-care (01) ==
LOC: ANHED 13:54 → ANHICU 16:00
PROVIDERS: Internal Medicine Critical Care Medicine; Admitting Provider General Practice; Emergency Provider Emergency Medicine; Visit Provider General Practice
DX: E10.10 Type 1 diabetes mellitus with ketoacidosis without coma (principal); E86.9 Volume depletion, unspecified; T85.694A Other mechanical complication of insulin pump, initial encounter; Z79.4 Long term (current) use of insulin; Z96.41 Presence of insulin pump (external) (internal); F17.210 Nicotine dependence, cigarettes, uncomplicated
CPT/HCPCS: 36415; 36600; 80048; 80053; 81001; 81025; 82375; 82805; 82948; 83036; 83050; 83735; 84100; 85018; 85025; 87641; 96361; 96365; 96366; 96368; 96374; 99285; A9270; G0378; G0379; J1815; J3480; J7030